=== PATIENT | female | born 1955 | race African-American/Black ===

== ENCOUNTER 2017-08-20 08:49 | Emergency (ER) | payer MEDICARE, OTHER ==
[~2017-08-20] VITALS: Ht 162.6 cm; Wt 158.8 kg
[2017-08-20 09:05] VITALS: BP 142/73
--- NOTE | 2017-08-20 09:17 | Emergency Room Report ---
History of Present Illness General Chief Complaint: Hypertension Source: Patient Present Illness HPI The patient presents with hypertension. She's somewhat stressed as she is going have dental implants next Friday. She saw her binder fixer yesterday and he said that her blood pressure was high and that she should see her private doctor. She hasn't taken her medications this morning. The patient denies headache, change in vision, nausea, vomiting, dysuria, foamy urine, chest pain, palpitations, abdominal pain, fevers or joint pain. She has a diagnosis of Sjgren's syndrome. She's on prednisone 7.5 mg. She complains about left leg and foot numbness that's been chronic. Her binder fixer states this is related to her Sjgren's. Allergies: Coded Allergies: LISINOPRIL (Verified Allergy, Intermediate, 12/12/15) Patient History Past Medical History: see triage record Social History: Denies: smoking, alcohol use Social History Narrative with service dog Reviewed Nursing Documentation: PMH: Agreed, PSxH: Agreed Nursing Documentation-PMH Hx Hypertension: Yes Hx Neurological Problems: Yes - anuerysm x2, nasal polyps Hx Cerebrovascular Accident: Yes Review of Systems All Other Systems: negative except mentioned in HPI Physical Exam Vital Signs Date Time Temp Pulse Resp B/P (MAP) Pulse Ox O2 Delivery O2 Flow Rate FiO2 08/20/17 08:55 97.9 67 20 176/96 94 Room Air Sp02 EP Interpretation: reviewed, normal General Appearance: alert, GCS 15, obese Head: normocephalic Eyes: bilateral eye normal inspection ENT: moist mucus membranes - poor dentition - partial extractions Neck: supple Respiratory: lungs clear, normal breath sounds Cardiovascular #1: regular rate, rhythm, edema - trace Cardiovascular #2: 2+ radial (R) Gastrointestinal: normal inspection, normal bowel sounds, non tender, no mass, non-distended Musculoskeletal: back normal, gait/station normal, normal range of motion Neurologic: alert, oriented x3, motor strength/tone normal, DTRs symmetric, sensory intact, cerebellar normal, normal gait, speech normal Psychiatric: anxious Skin: normal inspection, warm/dry Medical Decision Making Diagnostic Impression: Primary Impression: Hypertension Qualified Codes: I10 - Essential (primary) hypertension Additional Impression: Labile blood pressure ER Course Patient presents with hypertension. Differential includes acute renal failure, malignant hypertension, urgent hypertension and stress, labile hypertension amongst others. The patient evaluated the EKG and labs. Not take her medications this morning and her first is to give the patient her medications. Lack of chest sy precludes CXR. EKG without injury. Labs with some proteinuria, normal renal function. Patient BP spontaneously to minimally elevated levels. Discussed labile HTN with patient, salt restriction, regular exercise and weight loss. Also discussed "stress". Patient stable for outpatient observation and treatment. Laboratory Tests Test 08/20/17 09:40 White Blood Count 8.4 K/UL (4.8-10.8) Red Blood Count 4.79 M/UL (4.20-5.40) Hemoglobin 13.2 G/DL (12.0-16.0) Hematocrit 39.7 % (37.0-47.0) Mean Corpuscular Volume 83 FL (80-99) Mean Corpuscular Hemoglobin 27.6 PG (27.0-31.0) Mean Corpuscular Hemoglobin Concent 33.4 G/DL (32.0-36.0) Red Cell Distribution Width 14.2 % (11.6-14.8) Platelet Count 319 K/UL (150-450) Mean Platelet Volume 6.9 FL (6.5-10.1) Neutrophils (%) (Auto) 57.2 % (45.0-75.0) Lymphocytes (%) (Auto) 30.6 % (20.0-45.0) Monocytes (%) (Auto) 9.9 % (1.0-10.0) Eosinophils (%) (Auto) 1.4 % (0.0-3.0) Basophils (%) (Auto) 1.0 % (0.0-2.0) Erythrocyte Sedimentation Rate 16 MM/HR (0-30) Prothrombin Time 11.1 SEC (9.30-11.50) Prothrombin Time INR 1.1 (0.9-1.1) PTT 27 SEC (23-33) Urine Color Yellow Urine Appearance Clear Urine pH 6 (4.5-8.0) Urine Specific [place] 1.020 (1.005-1.035) Urine Protein 1+ (NEGATIVE) H Urine Glucose (UA) Negative (NEGATIVE) Urine Ketones Negative (NEGATIVE) Urine Occult Blood Negative (NEGATIVE) Urine Nitrite Negative (NEGATIVE) Urine Bilirubin Negative (NEGATIVE) Urine Urobilinogen Normal MG/DL (0.0-1.0) Urine Leukocyte Esterase 1+ (NEGATIVE) H Urine RBC 0-2 /HPF (0 - 2) Urine WBC 2-4 /HPF (0 - 2) Urine Squamous Epithelial Cells Moderate /LPF (NONE/OCC) H Urine Bacteria Occasional /HPF (NONE) Sodium Level 135 MMOL/L (136-145) L Potassium Level 3.9 MMOL/L (3.5-5.1) Chloride Level 101 MMOL/L (98-107) Carbon Dioxide Level 26 MMOL/L (21-32) Anion Gap 8 mmol/L (5-15) Blood Urea Nitrogen 7 mg/dL (7-18) Creatinine 0.6 MG/DL (0.55-1.30) Estimate Glomerular Filtration Rate > 60 mL/min (>60) Glucose Level 109 MG/DL (74-106) H Calcium Level 8.8 MG/DL (8.5-10.1) Total Bilirubin 0.4 MG/DL (0.2-1.0) Aspartate Amino Transferase (AST) 40 U/L (15-37) H Alanine Aminotransferase (ALT) 60 U/L (12-78) Alkaline Phosphatase 82 U/L (46-116) Total Creatine Kinase 65 U/L (26-308) Troponin I 0.000 ng/mL (0.000-0.056) Pro-B-Type Natriuretic Peptide 114 pg/mL (0-125) Total Protein 7.6 G/DL (6.4-8.2) Albumin 3.5 G/DL (3.4-5.0) Globulin 4.1 g/dL Albumin/Globulin Ratio 0.9 (1.0-2.7) L EKG Diagnostic Results Rate: normal Rhythm: NSR ST Segments: no acute changes Rhythm Strip Diag. Results EP Interpretation: yes Rhythm: NSR, no PVC's, no ectopy Last Vital Signs Date Time Temp Pulse Resp B/P (MAP) Pulse Ox O2 Delivery O2 Flow Rate FiO2 08/20/17 12:50 97.9 81 20 142/57 100 Room Air Status: improved Disposition: HOME, SELF-CARE Condition: Improved Cortez Cee M.D. Aug 20, 2017 09:17
[2017-08-20 09:55] LABS: APPEARANCE,URINE CLEAR; BILIRUBIN, URINE NEGATIVE (NEGATIVE); EOSINOPHILS % (AUTO) 1.4 % (0.0-3.0); GLUCOSE, URINE (UA) NEGATIVE (NEGATIVE); HEMATOCRIT 39.7 % (37.0-47.0); HEMOGLOBIN 13.2 G/DL (12.0-16.0); KETONES,URINE NEGATIVE (NEGATIVE); LEUKOCYTE ESTERASE ,URINE 1+ (NEGATIVE); LYMPHOCYTES % (AUTO) 30.6 % (20.0-45.0); MEAN CORPUSCULAR VOLUME 83 FL (80-99); MONOCYTES % (AUTO) 9.9 % (1.0-10.0); NEUTROPHILS % (AUTO) 57.2 % (45.0-75.0); NITRITE,URINE NEGATIVE (NEGATIVE); PH,URINE 6 (4.5-8.0); PLATELET COUNT 319 K/UL (150-450); PROTEIN,URINE 1+ (NEGATIVE); RED BLOOD COUNT 4.79 M/UL (4.20-5.40); RED CELL DISTRIBUTION WIDTH 14.2 % (11.6-14.8); UROBILINOGEN,URINE NORMAL MG/DL (0.0-1.0); WHITE BLOOD COUNT 8.4 K/UL (4.8-10.8)
[2017-08-20 09:59] LABS: COLOR,URINE YELLOW
[2017-08-20 10:07] LABS: ANION GAP 8 mmol/L (5-15); BLOOD UREA NITROGEN 7 mg/dL (7-18); CALCIUM 8.8 MG/DL (8.5-10.1); CARBON DIOXIDE 26 MMOL/L (21-32); CHLORIDE 101 MMOL/L (98-107); CREATININE 0.6 MG/DL (0.55-1.30); POTASSIUM 3.9 MMOL/L (3.5-5.1); SODIUM 135 MMOL/L (136-145)
[2017-08-20 10:09] LABS: INR 1.1 (0.9-1.1)
[2017-08-20 10:20] LABS: ALANINE AMINOTRANSFERASE 60 U/L (12-78); ALBUMIN 3.5 G/DL (3.4-5.0); ALBUMIN/GLOBULIN RATIO 0.9 (1.0-2.7); ALKALINE PHOSPHATASE 82 U/L (46-116); ASPARTATE AMINO TRANSFERASE 40 U/L (15-37); BILIRUBIN,TOTAL 0.4 MG/DL (0.2-1.0); CREATINE KINASE 65 U/L (26-308)
[2017-08-20 11:05] VITALS: BP 133/60
[2017-08-20 12:50] VITALS: BP 142/57
--- NOTE | 2017-08-21 18:01 | Cardiology Report ---
APPROVED REPORT EKG Measurement Heart [id number] Normal sinus rhythm Normal ECG
== END 2017-08-20 12:50 | disposition home or self-care (01) ==
LOC: EMR 09:00
DX: I10 Essential (primary) hypertension (principal); Z86.73 Personal history of transient ischemic attack (TIA), and cerebral infarction without residual deficits; Z88.8 Allergy status to other drugs, medicaments and biological substances; Z86.79 Personal history of other diseases of the circulatory system
CPT/HCPCS: 36415; 80053; 81003; 82550; 83880; 84484; 85025; 85610; 85651; 85730; 93005; 99284

== ENCOUNTER 2020-03-04 21:34 | Emergency (ER) | payer MEDICARE, OTHER ==
[~2020-03-04] VITALS: Ht 165.1 cm; Wt 81.6 kg
[2020-03-04 21:48] VITALS: BP 168/83
--- NOTE | 2020-03-04 21:48 | NUR ---
ED Nurse Note: pt ambulated into ed from home CO left eye pain and irritation x 2 days. Redness and swelling noted. Pt states that she has a piece of dog hair stuck in her eye but states that she as been unable to get it out or see the hair. Pt states that she was recently seen for issue with her eye and was given medication for it. Pt states she has been using eye medication but accidentally put antifungal ointment into her eye as well. Pt states she thoroughly rinsed her eye of antifungal ointment but still has discomfort. Pt aao x 4, ambulates with steady gait, VSS no ss of distress noted. Awaiting ERMD at bedside. Awaiting further orders.
--- NOTE | 2020-03-04 21:59 | NUR ---
ED Nurse Note: ERMD at bedside
--- NOTE | 2020-03-04 22:07 | Emergency Room Report ---
History of Present Illness General Chief Complaint: Eye Problems Source: Patient Present Illness HPI Patient presents with left eye discharge and itching. This began yesterday. She accidentally instilled foot fungus drops into the eye. This made somewhat worse however it was itching before she applied the drops. She denies any pain. She denies any change in her vision. There is some swelling of the eyelids. She denies any runny nose or sore throat. There are no fevers or chills. She has been using Naphcon xuzb-dug-olotish drops with minimal relief. Also she has been using eyewash. No chest pain, palpitations, nausea, vomiting, diarrhea, dysuria, abdominal pain , shortness of breath, joint pain, rashes, depression, anxiety, dizziness, headache. Allergies: Coded Allergies: LISINOPRIL (Verified Allergy, Intermediate, 12/12/15) COVID-19 Screening Contact w/high risk pt: No Experienced COVID-19 symptoms?: No COVID-19 Testing performed REAL ESTATE REPRESENTATIVE: No Patient History Social History: Denies: smoking - Former Social History Narrative From home Last Menstrual Period: n/a Reviewed Nursing Documentation: PMH: Agreed; PSxH: Agreed Nursing Documentation-PMH Past Medical History: No History, Except For Hx Hypertension: Yes Hx Neurological Problems: Yes - anuerysm x2, nasal polyps Hx Cerebrovascular Accident: Yes Review of Systems All Other Systems: negative except mentioned in HPI Physical Exam Vital Signs Date Time Temp Pulse Resp B/P (MAP) Pulse Ox O2 Delivery O2 Flow Rate FiO2 03/04/20 21:39 98.6 83 18 168/83 (111) 99 Room Air Sp02 EP Interpretation: reviewed, normal General Appearance: well appearing, no apparent distress, GCS 15 Head: normocephalic Eyes: left eye Scleral Injection, left eye other - Lid swelling with some yellowish crusty discharge, no fluorescein uptake with Martin lamp; bilateral eye PERRL ENT: normal pharynx, moist mucus membranes Cardiovascular #1: regular rate, rhythm Gastrointestinal: normal inspection Musculoskeletal: gait/station normal Neurologic: alert, grossly normal Psychiatric: mood/affect normal Skin: normal color, no rash, warm/dry Medical Decision Making Diagnostic Impression: Primary Impression: Conjunctivitis Qualified Codes: H10.32 - Unspecified acute conjunctivitis, left eye ER Course Patient presents with left eye redness, itching swelling with some discharge. Differential includes chemical conjunctivitis, bacterial conjunctivitis, viral conjunctivitis amongst others. Based on the history and physical exam bacterial conjunctivitis is most likely. It is possible there is some inflammation after instilling antifungal drops into the eye. There is no corneal involvement at this time and vision is preserved. Antibiotics are indicated. Discussed findings with patient and treatment plan. Advised patient the need for outpatient follow-up. Also she was advised to return if symptoms worsen. Patient stable for outpatient observation and treatment. Last Vital Signs Date Time Temp Pulse Resp B/P (MAP) Pulse Ox O2 Delivery O2 Flow Rate FiO2 03/05/20 00:08 98.6 76 16 145/79 99 Room Air Status: improved Disposition: HOME, SELF-CARE Condition: Improved Scripts Sulfacetamide Sodium (BLEPH-10) 5 Ml Drops 2 DROP OP Q6HR, #10 ML Prov: Cortez Cee MD 03/05/20 Cortez Cee MD Mar 04, 2020 22:07
[2020-03-04] MEDS ORDERED: Tetracaine 0.5% Opth 4ml Soln LEFT EYE ONE (22:15)
[2020-03-04] MEDS ORDERED: Fluorescein Strips LEFT EYE ONE (22:15)
--- NOTE | 2020-03-04 23:56 | NUR ---
ED Nurse Note: ERMD at bedside for application of medication for eye assessment
[2020-03-05] MEDS ORDERED: BLEPH-105 ML OP
[2020-03-05 00:08] VITALS: BP 145/79
--- NOTE | 2020-03-05 00:08 | NUR ---
ER DISCHARGE NOTE: Patient is cleared to be discharged per ERMD, pt is aox4, 99% on room air, with stable vital signs. pt was given dc and prescription instructions, pt was able to verbalize understanding, pt id band removed. pt is able to ambulate with steady gait. pt took all belongings.
== END 2020-03-05 00:08 | disposition home or self-care (01) ==
LOC: EMR 22:17
DX: H10.32 Unspecified acute conjunctivitis, left eye (principal); Z88.8 Allergy status to other drugs, medicaments and biological substances; I10 Essential (primary) hypertension; Z86.73 Personal history of transient ischemic attack (TIA), and cerebral infarction without residual deficits
CPT/HCPCS: 99282